=== PATIENT | female | born 1990 | race American Indian/Alaskan Native ===

== ENCOUNTER 2017-08-16 18:34 | Emergency (ER) | payer SELFPAY ==
[2017-08-16 20:05] VITALS: BP 131/79
[2017-08-16 20:26] LABS: Eosinophils % (Auto) 1.1 % (0.0-4.3); Hematocrit 39.5 % (30.3-42.9); Hemoglobin 12.6 gm/dl (10.1-14.3); Mean Corpuscular HGB Conc 32 % (30-34); Mean Corpuscular Hemoglobin 26 pg (28-32); Mean Corpuscular Volume 81 fl (79-97); Platelet Count 205 K/mm3 (140-440); Red Blood Count 4.85 M/mm3 (3.65-5.03); Red Cell Distribution Width 15.5 % (13.2-15.2); White Blood Count 5.7 K/mm3 (4.5-11.0)
[2017-08-16 21:42] LABS: Bilirubin,Urine NEG (Negative); Blood,Urine LG (Negative); Ketones,Urine NEG (Negative); Leukocyte Esterase,Urine NEG (Negative); Mucus,Urine FEW /HPF; Nitrite,Urine NEG (Negative)
[2017-08-16 21:43] LABS: RBC,Urine > 182.0 /HPF (0.0-6.0)
== END 2017-08-16 22:05 | disposition left against medical advice (07) ==
LOC: ED 18:34
DX: N93.9 Abnormal uterine and vaginal bleeding, unspecified (principal); Z53.21 Procedure and treatment not carried out due to patient leaving prior to being seen by health care provider
CPT/HCPCS: 36415; 81001; 84702; 85025; 86850; 86900; 86901

== ENCOUNTER 2019-11-18 11:27 | Emergency (ER) | payer SELFPAY ==
--- NOTE | 2019-11-18 12:58 | Event Note ---
ED Screening Note ED Screening Note: states she has generalized body aches 4 days states she has N/V/D she is not sure if she is no fever PMHx none allergy: PCN LNMP: october 10, 2019, took a test 4 days ago and states it was negative This initial assessment/diagnostic orders/clinical plan/treatment(s) is/are subject to change based on patients health status, clinical progression and re- assessment by fellow clinical providers in the ED. Further treatment and workup at subsequent clinical providers discretion. Patient/guardian urged not to elope from the ED as their condition may be serious if not clinically assessed and managed. Initial orders include: labs, UA
[2019-11-18 13:37] LABS: Eosinophils % (Auto) 0.1 % (0.0-4.3); Hematocrit 47.7 % (30.3-42.9); Hemoglobin 15.9 gm/dl (10.1-14.3); Lymphocytes # (Auto) 1.5 K/mm3 (1.2-5.4); Lymphocytes % (Auto) 42.3 % (13.4-35.0); Mean Corpuscular HGB Conc 33 % (30-34); Mean Corpuscular Volume 83 fl (79-97); Monocytes # (Auto) 0.5 K/mm3 (0.0-0.8); Monocytes % (Auto) 14.1 % (0.0-7.3); Platelet Count 172 K/mm3 (140-440); Red Blood Count 5.77 M/mm3 (3.65-5.03); Red Cell Distribution Width 13.2 % (13.2-15.2)
[2019-11-18 13:59] LABS: Alanine Aminotransferase 17 units/L (7-56); Albumin 4.9 g/dL (3.9-5); BUN/Creatinine Ratio 20; Blood Urea Nitrogen 16 mg/dL (7-17); Calcium 9.9 mg/dL (8.4-10.2); Hemolysis Index 3
[2019-11-18 14:38] LABS: Bacteria,Urine 1+ /HPF (Negative); Bilirubin,Urine NEG (Negative); Blood,Urine SM (Negative); Color,Urine Yellow (Yellow); Mucus,Urine 2+ /HPF; Urobilinogen,Urine < 2.0 mg/dL (<2.0)
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
[2019-11-18] MEDS ORDERED: ONDANSETRON 4 MG/2 ML INJ IV ONE (17:09)
[2019-11-18] MEDS ORDERED: SODIUM CHLORIDE 0.9% 1000 ML 1,000 ML IV ONE (17:09)
[2019-11-18 18:38] VITALS: BP 91/57
== END 2019-11-18 18:39 | disposition home or self-care (01) ==
LOC: ED 11:27
DX: K52.9 Noninfective gastroenteritis and colitis, unspecified (principal); J06.9 Acute upper respiratory infection, unspecified; Z79.899 Other long term (current) drug therapy; Z88.0 Allergy status to penicillin
CPT/HCPCS: 36415; 80053; 81001; 83690; 84702; 85025; 87086; 96361; 96374; 99283; J2405; J7030

== ENCOUNTER 2021-04-29 01:54 | Emergency (ER) | payer OTHER ==
[2021-04-29 02:37] VITALS: BP 119/68
[2021-04-29 03:00] LABS: Basophils % (Auto) 0.9 % (0.0-1.8); Eosinophils # (Auto) 0.1 K/mm3 (0.0-0.4); Eosinophils % (Auto) 1.1 % (0.0-4.3); Hematocrit 40.4 % (30.3-42.9); Hemoglobin 13.4 gm/dl (10.1-14.3); Lymphocytes # (Auto) 2.4 K/mm3 (1.2-5.4); Lymphocytes % (Auto) 44.1 % (13.4-35.0); Mean Corpuscular HGB Conc 33 % (30-34); Mean Corpuscular Volume 86 fl (79-97); Monocytes # (Auto) 0.5 K/mm3 (0.0-0.8); Monocytes % (Auto) 8.5 % (0.0-7.3); Platelet Count 190 K/mm3 (140-440); Red Blood Count 4.69 M/mm3 (3.65-5.03); Red Cell Distribution Width 12.9 % (13.2-15.2)
--- NOTE | 2021-04-29 03:49 | Ultrasound Report ---
Transvaginal OB ultrasound INDICATION: Vaginal bleeding FINDINGS: No intrauterine is identified. Corpus luteal cyst is seen in the left ovary. Ovar ies are normal flow and Doppler. Endometrium is heterogeneous with mild increased vascularity. Endome trium measures 1 cm. Uterus measures 8.0 x 3.9 cm. IMPRESSION: No intrauterine is identified. There is thickening and heterogeneity within the uterus endo metrium with some vascularity. Follow-up is recommended with [facility]. Signer Name: Nima Billingsley MD Signed: 04/29/2021 3:45 AM Workstation Name: [email or web address]
[2021-04-29 03:52] LABS: Bacteria,Urine 1+ /HPF (Negative); Bilirubin,Urine NEG (Negative); Blood,Urine LG (Negative); Color,Urine Yellow (Yellow); Mucus,Urine FEW /HPF; Protein,Urine <15 mg/dL mg/dL (Negative); RBC,Urine > 182.0 /HPF (0.0-6.0); Urobilinogen,Urine < 2.0 mg/dL (<2.0)
--- NOTE | 2021-04-29 03:52 | Ultrasound Report ---
Of the ultrasound INDICATION: Vaginal bleeding FINDINGS: Uterus measures 8.3 x 3.7 cm. Ovaries appear normal. Corpus luteal cyst in the left. Endome trium is heterogeneous more prominent in the mid uterine segment. Increased vascularity in the endome trium. IMPRESSION: No intrauterine is identified. There is thickening and heterogeneity is within the endometr ium which is thickened with mild increased vascularity. Follow-up with [facility]. Signer Name: Nima Billingsley MD Signed: 04/29/2021 3:48 AM Workstation Name: [id number]
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
== END 2021-04-29 05:30 | disposition home or self-care (01) ==
LOC: ED 01:54
DX: O20.0 Threatened abortion (principal); Z88.0 Allergy status to penicillin; Z79.899 Other long term (current) drug therapy; Z87.891 Personal history of nicotine dependence; Z98.890 Other specified postprocedural states; Z3A.01 Less than 8 weeks gestation of pregnancy
CPT/HCPCS: 36415; 76801; 76817; 81001; 84702; 85025; 86900; 86901

== ENCOUNTER 2022-05-16 13:58 | Outpatient (CLI) | payer OTHER ==
[2022-05-16] MEDS ORDERED: ACETAMINOPHEN 500 MG TAB PO STA (15:24)
[2022-05-16 16:37] LABS: Bilirubin,Urine NEG (Negative); Blood,Urine NEG (Negative); Color,Urine Yellow (Yellow); Protein,Urine <15 mg/dL mg/dL (Negative); Urobilinogen,Urine < 2.0 mg/dL (<2.0)
[2022-05-16 16:51] LABS: Mucus,Urine FEW /HPF
[2022-05-16 19:10] VITALS: BP 118/69
--- NOTE | 2022-05-16 20:01 | Ultrasound Report ---
ULTRASOUND BIOPHYSICAL PROFILE INDICATION / CLINICAL INFORMATION: wellbeing. COMPARISON: None available. FINDINGS: BREATHING MOVEMENT = 2 GROSS BODY MOVEMENT = 2 TONE = 2 QUALITATIVE AMNIOTIC FLUID VOLUME = 2 TOTAL BIOPHYSICAL SCORE = 06/12 PRESENTATION: Cephalic. HEART RATE (beats per minute): 149 IMPRESSION: 1. biophysical profile = 06/12 Signer Name: Yvon Sebastian MD Signed: 05/16/2022 7:57 PM Workstation Name: [id number]
== END 2022-05-16 20:51 | disposition home or self-care (01) ==
LOC: TRG 13:58 → APU 13:59 → TRG 20:51
PROVIDERS: ATTEND Obstetrics & Gynecology
DX: O47.03 False labor before 37 completed weeks of gestation, third trimester (principal); Z3A.36 36 weeks gestation of pregnancy
CPT/HCPCS: 36415; 76819; 81001; 84112

== ENCOUNTER 2022-05-26 07:30 | Inpatient (IN) | payer OTHER ==
[2022-06-14] MEDS ORDERED: BICITRA ORAL LIQD 30ML PO ONE (06:00)
[2022-06-14] MEDS ORDERED: GENTAMICIN 0 MG in SODIUM CHLORIDE 0.9% 100 ML IV ONE (06:00)
[2022-06-14] MEDS ORDERED: OXYTOCIN DRIP 30 UNITS/500 ML BAG IV SCH ×2 (06:00→12:00)
[2022-06-14] MEDS ORDERED: FAMOTIDINE 20 MG/2 ML INJ IV ONE (06:00)
[2022-06-14] MEDS ORDERED: METOCLOPRAMIDE 10 MG/2 ML INJ IV ONE (06:00)
--- NOTE | 2022-06-14 06:21 | History and Physical Report ---
History of Present Illness Date of examination: 06/14/22 Date of admission: 06/14/22 06:06 Chief complaint: scheduled section History of present illness: Pt is a 32 year old ESHA 06/21/22 at 39w0d who presents for scheduled repeat secondary to previous x 1. She denies vaginal bleeding or leakage of fluid and reports good movement. She has had care at [facility] since 15 wks complicated by abnormal pap smear, sickle cell trait, silent alpha thalassemia carrier status, Rubella Equivocal status, prior section and history of hemorrhage necessitating blood transfusion after first delivery. She is GBS negative. Her last appt was three weeks ago on 05/25/22. 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 Family/Genetic History: diabetes, cancer Social history: no significant social history - Obstetrical History Expected Date of Delivery: 06/21/22 Actual Gestation: 39 Week(s) 0 Day(s) : 6 Para: 1 Hx # Term Pregnancies: 1 Number of Pregnancies: 0 Spontaneous Abortions: 3 Induced : 1 Number of Living Children: 1 Medications and Allergies Allergies Allergy/AdvReac Type Severity Reaction Status Date / Time Penicillins Allergy Hives Verified 02/12/17 21:17 Home Medications Medication Instructions Recorded Confirmed Last Taken Type Vit-Fe Fumar-FA [ 1 tab PO QDAY #90 tablet 06/25/15 02/12/17 1 Week Ago Rx Vitamin] ~05/09/22 Active Meds: Active Medications Lactated Ringer's (Lactated Ringers) 1,000 mls @ 2,250 mls/hr IV PREOP PATSY Stop: 06/15/22 06:27 Oxytocin/Sodium Chloride (Pitocin/Ns 30 Unit/500ml) 30 units in 500 mls @ 0 mls/hr IV TITR PATSY; Protocol Clindamycin HCl (Cleocin 900 Mg/50 Ml) 900 mg in 50 mls @ 100 mls/hr IV PREOP NR; Protocol Stop: 06/14/22 23:59 Gentamicin Sulfate / Sodium (Chloride) 100 mls @ 200 mls/hr IV PREOP ONE; Protocol Stop: 06/14/22 06:29 Review of Systems All systems: negative - Physical Exam Breasts: Positive: deferred Abdomen: Positive: soft (gravid ) Uterus: Positive: enlarged (gravid ) Extremities: Positive: edema (trace ) Results All other labs normal. Assessment and Plan A: IUP at 39w0d Previous x 1 H/o hemorrhage with blood transfusion Abnormal pap smear Silent alpha thalassemia carrier status Rubella Equivocal status GBS negative P: Proceed with repeat section and other indicated procedures Uterotonics ordered to decrease risk of uterine atony
[2022-06-14] MEDS: LACTATED RINGERS 1,000 ML IV SCH ×2 (06:48→13:12)
[2022-06-14 06:53] LABS: Basophils # (Auto) 0.1 K/mm3 (0.0-0.1); Eosinophils % (Auto) 0.3 % (0.0-4.3); Hematocrit 30.7 % (30.3-42.9); Hemoglobin 10.3 gm/dl (10.1-14.3); Lymphocytes % (Auto) 26.7 % (13.4-35.0); Mean Corpuscular HGB Conc 34 % (30-34); Mean Corpuscular Volume 75 fl (79-97); Monocytes # (Auto) 0.7 K/mm3 (0.0-0.8); Monocytes % (Auto) 8.9 % (0.0-7.3); Platelet Count 212 K/mm3 (140-440); Red Blood Count 4.09 M/mm3 (3.65-5.03); Red Cell Distribution Width 16.6 % (13.2-15.2)
[2022-06-14] MEDS ORDERED: ePHEDrine SULFATE 50 MG/1 ML INJ ONE (07:21)
[2022-06-14] MEDS ORDERED: GENTAMICIN/NS 80 MG/100 ML 100 ML IV ONE (07:34)
[2022-06-14] MEDS ORDERED: CARBOPROST TROMETHAMINE 250 MCG/1 ML INJ IM ONE (07:40)
[2022-06-14] MEDS ORDERED: miSOPROStol 200 MCG TAB ONE (07:40)
[2022-06-14] MEDS ORDERED: METHYLERGONOVINE MALEATE 0.2 MG/ML VIAL IM ONE (07:40)
[2022-06-14] MEDS ORDERED: TRANEXAMIC ACID 1,000 MG/10 ML ONE (07:42)
[2022-06-14] MEDS ORDERED: KETOROLAC 30 MG/1 ML INJ ONE (07:47)
[2022-06-14] MEDS ORDERED: ONDANSETRON 4 MG/2 ML INJ ONE (07:50)
[2022-06-14] MEDS ORDERED: BUPIVACAINE/PF (0.25%) 2.5 MG/ML 30 ML VIAL INFILTRATI ONE ×2 (07:51)
[2022-06-14] MEDS ORDERED: SODIUM CHLORIDE 0.9% 100 ML ONE ×3 (07:54)
[2022-06-14] MEDS ORDERED: GENTAMICIN/NS 80 MG/100 ML 100 ML IV SCH (08:30)
[2022-06-14] MEDS ORDERED: propofoL 200 MG/20 ML VIAL IV ONE ×2 (09:00→09:11)
[2022-06-14] MEDS ORDERED: KETAMINE/STERILE WATER 50 MG/ML SYRINGE ONE (09:18)
[2022-06-14] MEDS ORDERED: fentaNYL 100 MCG/2 ML INJ ONE (09:45)
--- NOTE | 2022-06-14 10:16 | Operative Report ---
Operative Report Operative Report: Date of procedure: June 14, 2022 Preoperative diagnosis: 1) IUP at 39w0d 2) Previous x 1 3) Obesity Postoperative diagnosis: Same 4) Uterine Atony Procedure: Repeat low transverse section Surgeon: Radha Tena M.D. Anesthesia: Regional Findings: 1) Viable female , Apgars 8 and 9, weight 3520 g, (7 lb 12 oz) in cephalic presentation. Terminal meconium. 2) Normal-appearing uterus ovaries and tubes Estimated blood loss: 1000 mL IV fluids: 1500 mL Urine output: 100 mL, clear at the end of the procedure Drains: Angel to gravity Specimens: Placenta to pathology Complications:None. Counts correct x 3 Disposition: Stable to PACU Indication for procedure: Pt is a 32 year old at 39w0d with previous section presents for repeat section. Operation in detail: After the risks, benefits, alternatives and complications were explained to the patient she gave informed consent for the procedure. She was subsequently taken to the operating room where regional anesthesia was noted to be adequate. She was placed in the dorsal supine position with leftward tilt and prepped and draped in a normal sterile fashion. heart tones were noted prior to incision. A timeout was performed. A Pfannenstiel skin incision was made with the knife and carried down to the layer of the fascia with the Bovie. The fascia was incised in the midline and the fascial incision was extended bilaterally with the Bovie. The fascial incision was then stretched. The rectus muscles were then in the midline and partially transected for adequate visualization. The peritoneum was then entered bluntly. The peritoneal incision was extended with good visua lization of the bladder. The peritoneal incision was then stretched. An Robert retractor was placed. The bladder blade was then placed. The vesicouterine peritoneum was grasped with smooth pick ups and incised with Metzenbaum scissors. A bladder flap was then created digitally and the bladder blade was replaced. A transverse incision was made in the lower uterine segment with a knife and extended bilaterally with the bandage scissors. Amniotomy was performed with egress of clear fluid. head delivered with ease, followed by shoulders and body. bulb suctioned at delivery. Cord clamped and cut. handed to NICU staff in attendance. Cord blood was collected. The placenta was then delivered manually. The uterus was then exteriorized and cleared of all clots and debris. The hysterotomy was then reapproximated with 0 Monocryl in a running locked fashion. A second layer of the same suture was used in imbricating fashion. The hysterotomy was inspected and hemostasis was noted. The gutters were irrigated and cleared of all clots and debris. The uterus was placed back into the peritoneal cavity. The hysterotomy was again inspected and noted to be hemostatic. Surgicel was placed over the hysterotomy. The Robert retractor was removed. The peritoneum was reapproximated with 0 Monocryl in a running fashion incorporating the rectus muscles. Surgicel was placed over the rectus muscles. The fascia was reapproximated with 0 Vicryl in a running fashion. The subcutaneous tissue was reapproximated with 0 Monocryl in a running fashion. The skin was reapproximated with kim. The incision was then covered with steri strips and a pressure dressing. The procedure was then ended. The patient tolerated the procedure well and was taken to the PACU in stable condition. All instrument, lap, and needle counts were correct 3.
--- NOTE | 2022-06-14 10:16 | Procedure Note ---
OB Delivery Note - Delivery Date of Delivery: 06/14/22 Surgeon: TERESSA BHARDWAJ Estimated blood loss: 1000cc - Section Preop diagnosis: repeat , other malpresentation section procedure: section, repeat low transverse Disposition: PACU Complications: uterine atony Narrative: Please see operative report - A at 1 minute: 8 at 5 minutes: 9 Infant Gender: Female (3520g (7lb 12oz) @ 0847 am)
[2022-06-14] MEDS ORDERED: hydrALAZINE 20 MG/1 ML INJ ONE (10:18)
[2022-06-14] MEDS ORDERED: MAGNESIUM SULFATE 40GM/1000ML 40 GM/1,000 ML BAG IV ONE (10:19)
[2022-06-14] MEDS ORDERED: MAGNESIUM SULFATE 4 GM/100 ML BAG IV ONE ×2 (10:19→11:12)
[2022-06-14] MEDS: hydrALAZINE 20 MG/1 ML INJ IV PRN ×2 (10:21→22:48)
[2022-06-14] MEDS ORDERED: NALOXONE 0.4 MG/1 ML INJ IV PRN ×3 (10:30→11:10)
[2022-06-14] MEDS ORDERED: HYDROmorphone 1 MG/1 ML INJ ONE (10:30)
[2022-06-14] MEDS ORDERED: ONDANSETRON 4 MG/2 ML INJ IV PRN ×3 (10:30→11:12)
[2022-06-14] MEDS ORDERED: PROMETHAZINE 25 MG TAB PO PRN ×2 (10:30→11:00)
[2022-06-14] MEDS ORDERED: PROMETHAZINE 25 MG RECT SUPP PR PRN (10:30)
[2022-06-14] MEDS: MAGNESIUM SULFATE 40GM/1000ML 40 GM/1,000 ML BAG IV SCH (10:58)
[2022-06-14] MEDS ORDERED: fentaNYL-BUPIV 2 MCG/ML-0.125% 200 MCG/100 ML BAG EPIDURAL SCH (11:00)
[2022-06-14] MEDS ORDERED: LANOLIN/ZINC/DIMETHICONE (LANSINOH) 7 GM TP PRN (11:10)
[2022-06-14] MEDS ORDERED: WITCH HAZEL/ GLYCERIN PAD TP PRN (11:10)
[2022-06-14] MEDS ORDERED: HYDROmorphone 0.5 MG/0.5 ML INJ IV PRN (11:12)
[2022-06-14] MEDS ORDERED: ACETAMINOPHEN 325 MG TAB PO PRN (11:12)
[2022-06-14] MEDS ORDERED: CALCIUM GLUCONATE 1000 MG/10 ML INJ IV PRN (11:12)
[2022-06-14] MEDS ORDERED: LACTATED RINGERS 1,000 ML IV SCH (11:15)
[2022-06-14] MEDS: CLINDAMYCIN 600 MG/50 mL 600 MG/50 ML BAG IV SCH ×2 (12:44→20:17)
[2022-06-14] MEDS: HYDROmorphone 0.5 MG/0.5 ML INJ IV PRN ×3 (13:01→22:04)
[2022-06-14] MEDS ORDERED: miSOPROStol 200 MCG TAB PR SCH (13:30)
[2022-06-14] MEDS ORDERED: hydrALAZINE 20 MG/1 ML INJ IV SCH (13:30)
[2022-06-14] MEDS ORDERED: METHYLERGONOVINE MALEATE 0.2 MG/ML VIAL IM SCH (13:30)
--- NOTE | 2022-06-14 19:10 | Anesthesia Day of Surgery ---
Anesthesia Day of Surgery - Day of Surgery Patient Examined: Yes Patient H&P Reviewed: Yes Patient is NPO: Yes Beta Blockers: No
--- NOTE | 2022-06-14 19:10 | Anesthesia Consultation ---
Anesthesia Consult and Med Hx - Airway Anesthetic Teeth Evaluation: Good ROM Head & Neck: Adequate Mental/Hyoid Distance: Adequate Mallampati Class: Class II Intubation Access Assessment: Good - Pulmonary Exam CTA: Yes - Cardiac Exam Cardiac Exam: RRR - Pre-Operative Health Status ASA Pre-Surgery Classification: ASA2 Proposed Anesthetic Plan: Spinal Nerve Block: Abdi TAP - Pulmonary Hx Smoking: No Hx Asthma: No Hx Respiratory Symptoms: No SOB: No COPD: No Home Oxygen Therapy: No Hx Pneumonia: No Hx Sleep Apnea: No - Cardiovascular System Hx Hypertension: No Hx Coronary Artery Disease: No Hx Heart Attack/AMI: No Hx Angina: No Hx Percutaneous Transluminal Coronary Angioplasty (PTCA): No Hx Pacemaker: No Hx Internal Defibrillator: No Hx Valvular Heart Disease: No Hx Heart Murmur: No Hx Peripheral Vascular Disease: No - Central Nervous System Hx Neuromuscular Disorder: No Hx Seizures: No CVA: No Hx Back Pain: No Hx Psychiatric Problems: Yes (high anxiety) - Gastrointestinal Hx Ulcer: No Hx Gastroesophageal Reflux Disease: No - Endocrine Hx Renal Disease: No Hx End Stage Renal Disease: No Hx Cirrhosis: No Hx Liver Disease: No Hx Insulin Dependent Diabetes: No Hx Non-Insulin Dependent Diabetes: No Hx Thyroid Disease: No Hx Hypothyroidism: No Hx Hyperthyroidism: No - Hematic Hx Anemia: No Hx Sickle Cell Disease: No - Other Systems Hx Alcohol Use: No Hx Substance Use: No Hx Cancer: No Hx Obesity: No
[2022-06-14 23:18] LABS: Hemoglobin 10.9 gm/dl (10.1-14.3)
[2022-06-15] MEDS: HYDROmorphone 0.5 MG/0.5 ML INJ IV PRN ×3 (01:08→10:24)
[2022-06-15] MEDS: oxyCODONE /ACETAMINOPHEN 5-325MG TAB PO PRN ×3 (02:30→16:24)
[2022-06-15] MEDS: MAGNESIUM SULFATE 40GM/1000ML 40 GM/1,000 ML BAG IV SCH (07:04)
--- NOTE | 2022-06-15 08:54 | Progress Note ---
Assessment and Plan - Patient Problems (1) Status post repeat low transverse section Current Visit: Yes Status: Acute Plan to address problem: Continue Magnesium therapy as orders Keep dressing clean and dry, remove on POD#2 Transfer to M/B unit post Mag infusion Anticipate d/c home in 24-48 hrs (2) Anemia Current Visit: Yes Status: Acute Qualifiers: Anemia type: iron deficiency Subjective - Subjective Date of service: 06/15/22 Principal diagnosis: S/P repeat C/S; POD#1 Interval history: Pt is a 32 year old ESHA 06/21/22 at 39w0d who presents for scheduled repeat secondary to previous x 1. She denies vaginal bleeding or leakage of fluid and reports good movement. She has had care at [facility] since 15 wks complicated by abnormal pap smear, sickle cell trait, silent alpha thalassemia carrier status, Rubella Equivocal status, prior section and history of hemorrhage necessitating blood transfusion after first delivery. She is GBS negative. Delivered viable female infant. Remains on L&D while on Magnesium therapy. Will transfer to M/B after completion of Magnesium. Patient reports: appetite normal (clear liquid diet), voiding normally (catheter in place), pain well controlled (with medications), no flatus, no bowel movement, no ambulating normally (remains on bedrest at this time) : doing well, bottle feeding Objective - Vital Signs Latest vital signs: Vital Signs Temp Pulse Resp BP BP Pulse Ox Pulse Ox 06/15/22 08:50 71 122/78 06/15/22 08:47 73 97 06/15/22 08:42 71 97 06/15/22 08:37 79 95 06/15/22 08:36 60 88 06/15/22 08:32 74 96 06/15/22 08:27 77 96 06/15/22 08:22 85 96 06/15/22 08:21 94 H 92 06/15/22 08:20 74 137/84 06/15/22 08:17 90 95 06/15/22 08:12 80 97 06/15/22 08:07 78 97 06/15/22 08:02 76 96 06/15/22 07:57 76 96 06/15/22 07:52 78 96 06/15/22 07:50 76 126/77 06/15/22 07:47 79 96 06/15/22 07:42 77 96 06/15/22 07:37 73 96 06/15/22 07:32 75 95 06/15/22 07:27 73 95 06/15/22 07:22 72 95 06/15/22 07:20 69 126/82 94 06/15/22 07:17 82 96 06/15/22 07:12 82 97 06/15/22 07:08 74 97 06/15/22 07:03 73 97 06/15/22 06:57 71 97 06/15/22 06:52 72 97 06/15/22 06:50 71 127/72 06/15/22 06:48 84 94 06/15/22 06:47 78 96 06/15/22 06:42 69 97 06/15/22 06:37 75 97 06/15/22 06:33 71 96 06/15/22 06:27 74 96 06/15/22 06:22 74 97 06/15/22 06:20 70 116/71 06/15/22 06:17 75 97 06/15/22 06:12 75 97 06/15/22 06:07 69 96 06/15/22 06:02 74 96 06/15/22 05:57 76 97 06/15/22 05:52 78 97 06/15/22 05:50 79 119/71 94 06/15/22 05:47 72 96 06/15/22 05:42 74 96 06/15/22 05:37 75 96 06/15/22 05:32 72 96 06/15/22 05:29 79 94 06/15/22 05:27 70 95 06/15/22 05:22 83 97 06/15/22 05:20 72 119/76 06/15/22 05:17 74 95 06/15/22 05:12 76 96 06/15/22 05:07 79 96 06/15/22 05:02 77 95 06/15/22 04:57 75 96 06/15/22 04:52 82 95 06/15/22 04:50 85 124/80 91 06/15/22 04:47 75 95 06/15/22 04:42 75 96 06/15/22 04:37 78 95 06/15/22 04:32 82 96 06/15/22 04:29 97.8 F 87 14 129/78 97 06/15/22 04:27 81 97 06/15/22 04:22 81 95 06/15/22 04:20 84 129/78 91 06/15/22 04:17 87 96 06/15/22 04:12 93 H 96 06/15/22 04:07 85 97 06/15/22 04:02 82 96 06/15/22 03:57 82 96 06/15/22 03:52 82 96 06/15/22 03:50 84 120/76 92 06/15/22 03:47 84 97 06/15/22 03:42 85 95 06/15/22 03:37 85 96 06/15/22 03:32 84 97 06/15/22 03:27 96 H 97 06/15/22 03:22 82 96 06/15/22 03:20 88 127/76 91 06/15/22 03:17 89 97 06/15/22 03:12 91 H 96 06/15/22 03:07 89 97 06/15/22 03:02 88 96 06/15/22 02:57 83 96 06/15/22 02:52 82 96 06/15/22 02:50 86 131/78 92 06/15/22 02:47 85 96 06/15/22 02:42 84 97 06/15/22 02:37 87 97 06/15/22 02:32 94 H 97 06/15/22 02:27 95 H 96 06/15/22 02:22 93 H 97 06/15/22 02:20 85 144/88 06/15/22 02:17 94 H 96 06/15/22 02:12 95 H 97 06/15/22 02:07 102 H 96 06/15/22 02:02 101 H 96 06/15/22 01:57 96 H 97 06/15/22 01:52 89 96 06/15/22 01:50 88 135/82 94 06/15/22 01:47 91 H 95 06/15/22 01:42 92 H 96 06/15/22 01:37 90 95 06/15/22 01:32 100 H 96 06/15/22 01:27 94 H 95 06/15/22 01:22 90 95 06/15/22 01:20 93 H 128/75 92 06/15/22 01:17 94 H 95 06/15/22 01:12 93 H 96 06/15/22 01:07 99 H 97 06/15/22 01:02 104 H 95 06/15/22 00:57 95 H 96 06/15/22 00:52 105 H 96 06/15/22 00:50 97 H 160/94 94 06/15/22 00:48 97.9 F 98 H 16 99 06/15/22 00:47 104 H 96 06/15/22 00:42 100 H 97 06/15/22 00:37 98 H 96 06/15/22 00:32 89 96 06/15/22 00:27 101 H 96 06/15/22 00:22 94 H 97 06/15/22 00:20 104 H 142/89 94 06/15/22 00:17 107 H 96 06/15/22 00:12 96 H 96 06/15/22 00:07 101 H 95 06/15/22 00:04 107 H 94 06/15/22 00:02 101 H 96 06/14/22 23:57 99 H 95 06/14/22 23:52 98 H 96 06/14/22 23:50 96 H 170/93 06/14/22 23:47 101 H 96 06/14/22 23:42 103 H 96 06/14/22 23:37 93 H 97 06/14/22 23:32 92 H 97 06/14/22 23:27 100 H 96 06/14/22 23:22 91 H 96 06/14/22 23:20 92 H 155/93 06/14/22 23:17 92 H 97 06/14/22 23:12 101 H 96 06/14/22 23:07 96 H 97 06/14/22 23:02 98 H 96 06/14/22 23:01 101 H 94 06/14/22 22:57 97 H 96 06/14/22 22:54 91 H 94 06/14/22 22:52 95 H 95 06/14/22 22:49 87 94 06/14/22 22:47 93 H 96 06/14/22 22:43 87 94 06/14/22 22:42 88 95 06/14/22 22:37 88 94 06/14/22 22:32 85 95 06/14/22 22:31 87 94 06/14/22 22:27 89 95 06/14/22 22:24 91 H 94 06/14/22 22:22 91 H 95 06/14/22 22:17 88 95 06/14/22 22:12 89 93 06/14/22 22:09 82 94 06/14/22 22:07 89 96 06/14/22 22:02 94 H 97 06/14/22 21:57 87 97 06/14/22 21:56 84 163/99 06/14/22 21:52 93 H 96 06/14/22 21:47 100 H 97 06/14/22 21:42 87 96 06/14/22 21:39 93 H 164/96 06/14/22 21:37 87 97 06/14/22 21:32 86 97 06/14/22 21:27 89 97 06/14/22 21:22 86 97 06/14/22 21:17 87 97 06/14/22 21:12 91 H 96 06/14/22 21:07 89 97 06/14/22 21:02 88 97 06/14/22 20:57 87 96 06/14/22 20:52 85 97 06/14/22 20:47 87 97 06/14/22 20:42 85 97 06/14/22 20:39 86 175/100 06/14/22 20:37 90 96 06/14/22 20:32 95 H 97 06/14/22 20:27 93 H 98 06/14/22 20:22 95 H 97 06/14/22 20:17 97 H 98 06/14/22 20:12 96 H 98 06/14/22 20:07 97 H 97 06/14/22 20:04 90 161/92 06/14/22 20:02 97 H 98 06/14/22 19:57 86 97 06/14/22 19:52 87 97 06/14/22 19:47 84 98 06/14/22 19:42 82 98 06/14/22 19:37 87 141/79 97 98 06/14/22 19:36 98.0 F 88 14 147/79 98 06/14/22 19:32 85 96 06/14/22 19:27 87 97 06/14/22 19:22 95 H 97 06/14/22 19:17 91 H 96 06/14/22 19:12 86 96 08/10/22 19:09 85 122/68 06/14/22 19:07 86 97 06/14/22 19:05 86 94 06/14/22 19:02 84 97 06/14/22 18:57 88 96 06/14/22 18:55 89 94 06/14/22 18:52 88 96 06/14/22 18:47 86 97 06/14/22 18:42 85 96 06/14/22 18:39 83 124/75 06/14/22 18:37 85 96 06/14/22 18:32 82 97 06/14/22 18:27 83 96 06/14/22 18:22 82 96 06/14/22 18:17 82 98 06/14/22 18:12 88 98 06/14/22 18:09 80 151/78 06/14/22 18:07 94 H 97 06/14/22 18:02 86 99 06/14/22 17:57 91 H 97 06/14/22 17:52 85 98 06/14/22 17:47 84 98 06/14/22 17:42 82 98 06/14/22 17:39 78 143/83 06/14/22 17:37 82 97 06/14/22 17:32 79 97 06/14/22 17:27 86 98 06/14/22 17:22 90 97 06/14/22 17:17 92 H 96 06/14/22 17:12 100 H 96 06/14/22 17:09 94 H 126/72 06/14/22 17:07 95 H 98 06/14/22 17:02 81 97 06/14/22 16:57 82 96 06/14/22 16:52 91 H 97 06/14/22 16:47 90 97 06/14/22 16:42 79 97 06/14/22 16:39 77 140/83 06/14/22 16:37 83 97 06/14/22 16:32 79 98 06/14/22 16:27 84 97 06/14/22 16:22 82 97 06/14/22 16:17 86 97 06/14/22 16:12 83 97 06/14/22 16:09 80 136/84 06/14/22 16:07 85 97 06/14/22 16:02 85 98 06/14/22 15:57 99 H 97 06/14/22 15:52 85 96 06/14/22 15:47 90 97 06/14/22 15:42 97.8 F 94 H 18 99 06/14/22 15:39 82 144/73 06/14/22 15:37 88 99 06/14/22 15:32 92 H 98 06/14/22 15:27 86 97 06/14/22 15:22 93 H 96 06/14/22 15:17 89 95 06/14/22 15:12 81 96 06/14/22 15:09 80 134/63 06/14/22 15:07 87 97 06/14/22 15:02 89 99 06/14/22 14:57 85 96 06/14/22 14:52 86 96 06/14/22 14:47 82 96 06/14/22 14:42 86 95 06/14/22 14:39 92 H 132/60 06/14/22 14:37 93 H 97 06/14/22 14:32 108 H 97 06/14/22 14:27 88 95 06/14/22 14:22 89 96 06/14/22 14:20 92 H 94 06/14/22 14:17 86 95 06/14/22 14:12 87 96 06/14/22 14:09 100 H 136/61 06/14/22 14:07 90 96 06/14/22 14:02 89 95 06/14/22 13:57 93 H 95 06/14/22 13:52 92 H 95 06/14/22 13:51 93 H 94 06/14/22 13:47 90 95 06/14/22 13:45 88 94 06/14/22 13:42 102 H 96 06/14/22 13:39 100 H 99/57 06/14/22 13:37 93 H 93 06/14/22 13:35 91 H 94 06/14/22 13:32 94 H 94 06/14/22 13:29 96 H 93 06/14/22 13:27 91 H 95 06/14/22 13:23 92 H 94 06/14/22 13:22 95 H 94 06/14/22 13:19 91 H 115/58 06/14/22 13:17 91 H 95 06/14/22 13:16 95 H 94 06/14/22 13:12 98 H 94 06/14/22 13:09 101 H 108/54 06/14/22 13:08 92 H 94 06/14/22 13:07 92 H 96 06/14/22 13:02 97 H 94 06/14/22 12:57 98 H 93 06/14/22 12:47 96 06/14/22 11:38 99.4 F 100 H 20 133/82 94 06/14/22 11:21 109 H 20 142/92 97 06/14/22 11:05 94 H 19 144/90 96 06/14/22 10:54 99.3 F 18 06/14/22 10:50 92 H 17 161/94 95 06/14/22 10:35 103 H 18 140/107 96 06/14/22 10:30 81 18 180/100 96 06/14/22 10:15 81 18 167/119 96 06/14/22 10:10 97.8 F 67 16 161/108 96 Intake and Output 06/14/22 06/15/22 06/15/22 23:59 07:59 15:59 Intake Total 1000 Output Total 2400 1200 Balance -2400 -200 Intake: IV 1000 MAGNESIUM SULFATE 40GM/ 1000 1000ML 40 gm In 1,000 ml @ 2 GM/HR 50 mls/hr IV DIRECT PATSY Rx#:[id number] Output: Urine 2400 1200 Indwelling Catheter 2400 1200 Other: Total, Output Amount 800 250 - Exam Breasts: Present: normal Cardiovascular: Present: Regular rate Lungs: Present: Normal air movement Abdomen: Present: soft, tenderness Uterus: Present: firm, fundal height below umbilicus (U-2) Extremities: Present: edema Deep Tendon Reflex Grade: Normal +2 Incision: Present: dressed (no shawdow drainage or bleeding noted) - Labs Labs: Abnormal lab results 06/14/22 06/14/22 06/15/22 Range/Units 16:24 22:48 06:49 Magnesium 4.50 H 5.10 H 5.90 H (1.7-2.3) mg/dL
--- NOTE | 2022-06-15 11:00 | Post Anesthesia Evaluation ---
- Post Anesthesia Evaluation Patient Participated: Yes Airway Patent: Yes Stable Respiratory Function: Yes Nausea/Vomiting: No Temp > 96.8F: Yes Pain Manageable: Yes Adequeate Hydration: Yes Anesthesia Complications: Yes Block Receding Appropriately: Yes Patient on Ventilator: No
[2022-06-15] MEDS ORDERED: TETANUS,DIPH,PERTUSS(ACELL) VACCINE 0.5 ML SYRINGE IM ONE (11:14)
[2022-06-15] MEDS ORDERED: MEASLES, MUMPS & RUBELLA 12,500 UNIT/0.5 ML VACCINE SUB-Q ONE (11:14)
[2022-06-15] MEDS ORDERED: SIMETHICONE 80 MG CHEW TAB PO PRN (19:14)
[2022-06-15] MEDS ORDERED: MAGNESIUM HYDROXIDE (MOM) ORAL LIQD UDC PO PRN (19:33)
[2022-06-15] MEDS: SIMETHICONE 80 MG CHEW TAB PO PRN (23:03)
[2022-06-15] MEDS: IBUPROFEN 600 MG TAB PO PRN (23:03)
[2022-06-16] MEDS: oxyCODONE /ACETAMINOPHEN 5-325MG TAB PO PRN (01:24)
--- NOTE | 2022-06-16 07:15 | Progress Note ---
Assessment and Plan - Patient Problems (1) Status post repeat low transverse section Current Visit: Yes Status: Acute Plan to address problem: Patient doing well discharge home Subjective - Subjective Date of service: 06/16/22 Principal diagnosis: S/P repeat C/S; POD#1 Interval history: Patient is postoperative day #2 status post repeat delivery. She is currently without complaints. She has been tolerating regular diet without nausea and vomiting. Patient reports: appetite normal, voiding normally, pain well controlled [place]: doing well Objective - Vital Signs Latest vital signs: Vital Signs Temp Pulse Resp BP BP Pulse Ox Pulse Ox 06/16/22 05:38 98.2 F 66 20 139/93 95 06/16/22 01:09 98.1 F 82 20 137/87 96 06/16/22 00:03 18 06/15/22 23:03 20 06/15/22 19:57 98.2 F 74 20 134/87 99 06/15/22 16:24 20 06/15/22 16:18 98.5 F 75 20 145/87 96 06/15/22 12:51 99 06/15/22 12:25 98.1 F 76 20 140/87 99 06/15/22 11:52 78 96 06/15/22 11:50 76 129/83 06/15/22 11:47 77 96 06/15/22 11:42 74 96 06/15/22 11:37 78 96 06/15/22 11:33 77 96 06/15/22 11:27 75 96 06/15/22 11:22 77 96 06/15/22 11:20 76 129/78 92 06/15/22 11:17 75 97 06/15/22 11:13 77 97 06/15/22 11:07 75 97 06/15/22 11:03 82 97 06/15/22 10:58 76 97 06/15/22 10:52 76 97 06/15/22 10:50 74 135/78 93 06/15/22 10:47 75 96 06/15/22 10:42 75 96 06/15/22 10:37 74 97 06/15/22 10:32 74 97 06/15/22 10:27 76 96 06/15/22 10:22 82 95 06/15/22 10:20 74 137/87 06/15/22 10:17 83 97 06/15/22 10:12 86 97 06/15/22 10:07 77 97 06/15/22 10:02 82 96 06/15/22 09:57 81 97 06/15/22 09:52 80 97 06/15/22 09:50 83 132/84 06/15/22 09:47 85 96 06/15/22 09:42 79 97 06/15/22 09:37 80 97 06/15/22 09:32 83 97 06/15/22 09:27 76 97 06/15/22 09:22 75 97 06/15/22 09:20 74 119/76 06/15/22 09:17 75 97 06/15/22 09:12 72 97 06/15/22 09:07 74 97 06/15/22 09:02 71 96 06/15/22 08:57 75 96 06/15/22 08:52 71 97 06/15/22 08:50 71 122/78 06/15/22 08:47 73 97 06/15/22 08:42 71 97 06/15/22 08:37 79 95 06/15/22 08:36 60 88 06/15/22 08:32 74 96 06/15/22 08:27 77 96 06/15/22 08:22 85 96 06/15/22 08:21 94 H 92 06/15/22 08:20 74 137/84 06/15/22 08:17 90 95 06/15/22 08:12 80 97 06/15/22 08:07 78 97 06/15/22 08:02 76 96 06/15/22 07:57 76 96 06/15/22 07:52 78 96 06/15/22 07:50 76 126/77 06/15/22 07:47 79 96 06/15/22 07:42 77 96 06/15/22 07:37 73 96 06/15/22 07:32 75 95 06/15/22 07:27 73 95 06/15/22 07:22 72 95 06/15/22 07:20 69 126/82 94 06/15/22 07:17 82 96 Intake and Output 06/15/22 06/16/22 06/16/22 22:59 06:59 14:59 Intake Total 240 120 Output Total 250 Balance -10 120 Intake: Oral 240 120 Output: Urine 250 Void 250 Other: Total, Intake Amount 120 120 Total, Output Amount 250 # Voids Void 1 1 - Labs Labs: Abnormal lab results 06/15/22 Range/Units 06:49 Magnesium 5.90 H (1.7-2.3) mg/dL
--- NOTE | 2022-06-16 07:16 | Discharge Summary ---
Providers - Providers Date of Admission: 06/14/22 11:10 Date of discharge: 06/16/22 Attending physician: TERESSA TENA 06/14/22 11:12 Consult to Bi Tri Operator [CONS] Routine Reason For Exam: Primary care physician: RADHA SHORE MD Hospitalization Reason for admission: section Delivery: Procedure: section, repeat low transverse Discharge diagnosis: IUP at term delivered Hospital course: Patient was admitted the day of surgery for repeat delivery. Please see operative note for details of surgery. Her postoperative course was uneventful. Condition at discharge: Good Disposition: 01 HOME / SELF CARE / HOMELESS - Discharge Diagnoses (1) Status post repeat low transverse section Status: Acute Plan - Discharge Medications Prescriptions: Ibuprofen [Motrin] 800 mg PO Q8HR PRN #60 tablet PRN Reason: Pain , Severe (7-10) oxyCODONE /ACETAMINOPHEN [Percocet 5/325] 1 tab PO Q6HR PRN #30 tablet PRN Reason: Pain - Provider Discharge Summary Activity: no sex for 6 weeks, no heavy lifting 4 weeks, no strenuous exercise Diet: routine Instructions: routine Additional instructions: [] Smoking cessation referral if applicable(refer to patient education folder for contact #) [] Refer to [facility] Booklet Call your doctor immediately for: * Fever > 100.5 * Heavy vaginal bleeding ( >1 pad per hour) * Severe persistent headache * Shortness of breath * Reddened, hot, painful area to leg or breast * Drainage or odor from incision. * Keep incision clean and dry at all times and follow doctor's instructions regarding bathing/showering Schedule incision check in [address] Tena - Follow up plan
[2022-06-16] MEDS: IBUPROFEN 600 MG TAB PO PRN ×2 (09:36→17:17)
[2022-06-16] MEDS: SIMETHICONE 80 MG CHEW TAB PO PRN ×2 (09:36→15:33)
[2022-06-17] MEDS: oxyCODONE /ACETAMINOPHEN 5-325MG TAB PO PRN (00:05)
[2022-06-17] MEDS: IBUPROFEN 600 MG TAB PO PRN (05:58)
[2022-06-17 13:27] VITALS: BP 150/90
== END 2022-06-17 15:15 | disposition home or self-care (01) | DRG 766 ==
LOC: UNDOADMIN 06-14 06:06 → APU 06-14 06:06 → LD 06-14 12:46 → OB 06-15 12:18
PROVIDERS: ADMIT Obstetrics & Gynecology; ATTEND Obstetrics & Gynecology
PROC: 10D00Z1 Extraction of Products of Conception, Low, Open Approach (ICD-10-PCS; principal; 2022-06-14)
PROC: 3E0234Z Introduction of Serum, Toxoid and Vaccine into Muscle, Percutaneous Approach (ICD-10-PCS; 2022-06-15)
DX: O34.211 Maternal care for low transverse scar from previous cesarean delivery (principal); O77.0 Labor and delivery complicated by meconium in amniotic fluid; Z3A.39 39 weeks gestation of pregnancy; Z37.0 Single live birth; Z23 Encounter for immunization; Z20.822 Contact with and (suspected) exposure to COVID-19; Z32.3 Encounter for childcare instruction; O99.02 Anemia complicating childbirth; D56.3 Thalassemia minor; O75.89 Other specified complications of labor and delivery; O99.214 Obesity complicating childbirth; D50.9 Iron deficiency anemia, unspecified; Z88.0 Allergy status to penicillin
CPT/HCPCS: 36415; 83735; 85014; 85018; 85025; 86850; 86900; 86901; 88307; G0378; J3490; J7121; J7502; J0360; J1170; J1885; J2405; J2590; J2704; J2765; J3010; J3475; J7120; U0003